=== PATIENT | male | born 1960 | race Caucasian/White ===

== ENCOUNTER 2021-04-21 16:20 | Emergency (ER) | payer OTHER ==
[~2021-04-21] VITALS: Ht 182.9 cm; Wt 106.1 kg
[2021-04-21 16:21] VITALS: BP 00/00
== END 2021-04-21 16:21 ==
LOC: M.ERS 16:20 → EDBD 16:20 → M.ERS 16:21
DX: I46.9 Cardiac arrest, cause unspecified